=== PATIENT | male | born 1950 | race Caucasian/White ===

== ENCOUNTER 2019-06-23 15:23 | Emergency (ER) | payer MEDICARE, OTHER ==
--- NOTE | 2019-06-23 16:03 | EDM.PDOC ---
ED HPI GENERAL MEDICAL PROBLEM - General Chief Complaint: Cardiovascular Problem Stated Complaint: ABNORMAL PACEMAKER RHYTHM Time Seen by Provider: 06/23/19 15:45 Source of Information: Reports: Patient History Limitations: Reports: No Limitations - History of Present Illness INITIAL COMMENTS - FREE TEXT/NARRATIVE: 69-year-old male who reports that at approximately 6-7 PM last night he had just come in from walking the dog and he felt a thump/shock in his chest. He had felt completely well prior to this. He had no shortness of breath or chest pain. He did not have any weakness or dizziness or loss of consciousness stated with this. He states that he felt fine following this. He reports that he has been eating and drinking normally. He has had no vomiting or diarrhea. He does have a pacer defibrillator in place. Approximately 1-2 PM today, he was driving in his car and felt another thump/shock in his chest. He reports it felt just exactly like somebody shocked him. He was again having no symptoms prior to this and had no symptoms following this. He did not feel that his heart was beating fast or slow. He had no chest pain. He has had no sore throat or cough. He has no pain right now. He rates his pain as a 0/10. There are no other associated signs or symptoms. There are no other modifying factors. Onset: Other (6-7 PM last night and again at 1-2 PM today.) Duration: Other (No pain.) Location: Reports: Other (No pain.) Quality: Reports: Other (Not applicable) Improves with: Reports: None Worsens with: Reports: None Context: Reports: Other (As above) Associated Symptoms: Reports: No Other Symptoms Treatments C[employer] DESSERT: Reports: Other (see below) (Nothing) - Related Data Allergies Allergy/AdvReac Type Severity Reaction Status Date / Time No Known Allergies Allergy Verified 06/23/19 15:51 Home Meds: Home Meds Carvedilol 25 mg PO BID 06/23/19 [History] Diltiazem [Cardizem CD] 120 mg PO DAILY #15 cap.er 06/23/19 [Rx] Fludrocortisone [Fludrocortisone Acetate] 0.1 mg PO DAILY 06/23/19 [History] Rivaroxaban [Xarelto] 20 mg PO DAILY 06/23/19 [History] Past Medical History Cardiovascular History: Reports: Hypertension - Past Surgical History Cardiovascular Surgical History: Reports: AICD (/Pacemaker) Musculoskeletal Surgical History: Reports: Arthroscopic Knee (Right), Other ( See Below) (Right wrist surgery) Social & Family History - Tobacco Use Smoking Status *Q: Unknown Ever Smoked (Nonsmoker) - Alcohol Use Alcohol Use History: No - Living Situation & Occupation Occupation: Retired (Worked at the railroad.) Social History Comment: He is here with a friend. ED ROS GENERAL - Review of Systems Review Of Systems: See Below Constitutional: Reports: No Symptoms HEENT: Reports: No Symptoms Respiratory: Reports: No Symptoms Cardiovascular: Reports: No Symptoms (Other than his AICD apparently shocked him twice in the past 24 hours.) GI/Abdominal: Reports: No Symptoms : Reports: No Symptoms Musculoskeletal: Reports: No Symptoms Skin: Reports: No Symptoms Neurological: Reports: No Symptoms Hematologic/Lymphatic: Reports: No Symptoms Immunologic: Reports: No Symptoms ED EXAM, GENERAL - Physical Exam Exam: See Below Exam Limited By: No Limitations General Appearance: Alert, WD/WN, No Apparent Distress Eye Exam: Bilateral Eye: EOMI, Normal Inspection, PERRL Ears: Normal External Exam Ear Exam: Bilateral Ear: Auricle Normal Nose: Normal Inspection, Normal Mucosa, No Blood Throat/Mouth: Normal Inspection, Normal Oropharynx, Normal Voice, No Airway Compromise Head: Atraumatic, Normocephalic Neck: Normal Inspection, Supple Respiratory/Chest: No Respiratory Distress, Lungs Clear, Normal Breath Sounds, No Accessory Muscle Use, Chest Non-Tender Cardiovascular: Normal Peripheral Pulses, Regular Rate, Rhythm, No Edema, No JVD Peripheral Pulses: 2+: Radial (L), Radial (R), Dorsalis Pedis (L), Dorsalis Pedis (R) GI/Abdominal: Normal Bowel Sounds, Soft, Non-Tender, No Distention Back Exam: Normal Inspection, Full Range of Motion Extremities: Normal Inspection, Normal Range of Motion, Non-Tender, No Pedal Edema, Normal Capillary Refill Neurological: Alert, Oriented, CN II-XII Intact, Normal Cognition, No Motor/ Sensory Deficits Skin Exam: Warm, Dry, Intact, Normal Color, No Rash EKG INTERPRETATION EKG Date: 06/23/19 Time: 15:30 Rhythm: NSR Rate (Beats/Min): 74 [place]: LAD-Left [place] Deviation (Left anterior fascicular block) QRS: Normal ST-T: Other (Diffuse nonspecific ST-T changes) QT: Normal Comparison: NA - No Prior EKG Course - Vital Signs Last Recorded V/S: Last Vital Signs Temp 36.5 C 06/23/19 18:55 Pulse 75 06/23/19 18:55 Resp 17 06/23/19 18:55 BP 110/78 06/23/19 18:55 Pulse Ox 98 06/23/19 18:55 - Orders/Labs/Meds Orders: Active Orders 24 hr Category Date Time Status Chest 1V Frontal [CR] Stat Exams 06/23/19 16:08 Taken Peripheral IV Insertion Adult [OM.PC] Routine Oth 06/23/19 16:08 Ordered EKG 12 Lead [EK] Routine Ther 06/23/19 16:08 Ordered Labs: Laboratory Tests 06/23/19 06/23/19 06/23/19 Range/Units 16:15 16:15 16:15 WBC 5.1 (4.5-12.0) X10-3/uL RBC 5.05 (4.30-5.75) x10(6)uL Hgb 14.9 (13.5-17.8) g/dL Hct 44.5 (30.0-51.3) % MCV 88.1 (80-96) fL MCH 29.5 (27.7-33.6) pg MCHC 33.5 (32.2-35.4) g/dL RDW 11.9 (11.5-15.5) % Plt Count 248 (125-369) X10(3)uL MPV 8.1 (7.4-10.4) fL Neut % (Auto) 57.6 (46-82) % Lymph % (Auto) 28.5 (13-37) % [place] % (Auto) 11.7 (4-12) % Eos % (Auto) 1 (1.0-5.0) % Baso % (Auto) 1 (0-2) % Neut # (Auto) 2.8 (1.6-8.3) # Lymph # (Auto) 1.5 (0.6-5.0) # [place] # (Auto) 0.6 (0.0-1.3) # Eos # (Auto) 0.1 (0.0-0.8) # Baso # (Auto) 0.1 (0.0-0.2) # Sodium 140 (135-145) mmol/L Potassium 3.8 (3.5-5.3) mmol/L Chloride 105 (100-110) mmol/L Carbon Dioxide 25 (21-32) mmol/L BUN 21 H (7-18) mg/dL Creatinine 1.1 (0.70-1.30) mg/dL Est Cr Clr Drug Dosing 68.45 mL/min Estimated GFR (MDRD) > 60 (>60) BUN/Creatinine Ratio 19.1 (9-20) Glucose 103 (80-116) mg/dL Calcium 9.2 (8.6-10.2) mg/dL Magnesium 1.9 (1.8-2.5) mg/dL Total Bilirubin 1.0 (0.1-1.3) mg/dL AST 14 (5-25) IU/L ALT 21 (12-36) U/L Alkaline Phosphatase 74 (56-112) IU/L Troponin I < 0.017 L (<0.017-0.056) ng/mL Total Protein 7.4 (6.0-8.0) g/dL Albumin 3.2 (3.2-4.6) g/dL Globulin 4.2 g/dL Albumin/Globulin Ratio 0.8 Meds: Medications Discontinued Medications Generic Name Dose Route Start Last Admin Trade Name Freq PRN Reason Stop Dose Admin Sodium Chloride 10 ml 06/23/19 16:08 06/23/19 17:05 Saline Flush FLUSH 10 ml ASDIRECTED PRN Administration Keep Vein Open - Radiology Interpretation Free Text/Narrative:: Portable chest x-ray shows no acute disease. - Re-Assessments/Exams Free Text/Narrative Re-Assessment/Exam: 06/23/19 17:48: Patient's blood tests are normal. His chest x-ray was normal. He has remained hemodynamically stable while in the emergency department with no dysrhythmias on the monitor. He has had no more feelings of shock or any noted countershock from his defibrillator/pacemaker. We have contacted the [employer] rep and he is coming to interrogate the patient's defibrillator/ pacemaker. We will continue cardiac and hemodynamic monitoring. 06/23/19 18:15: Care to Dr. Bentley at this point. The [employer] rep is here now. Departure - Departure Time of Disposition: 18:15 Disposition: Home, Self-Care 01 Clinical Impression: AICD discharge Dysrhythmia Qualifiers: Atrial fibrillation type: unspecified Prescriptions: Diltiazem [Cardizem CD] 120 mg PO DAILY #15 cap.er Instructions: Atrial Fibrillation, [id number] Referrals: PCP,Not In Area [Primary Care Provider] - Forms: ED Department Discharge Additional Instructions: [employer] WORKER YOUR MED SENT TO YOUR PHARMACY. ONCE YOU GET TO [place] SET AN APPOINTMENT WITH YOUR PRIMARY PHYSICIAN FOR YOU TO BE CHECKED. - My Orders Last 24 Hours: My Active Orders 06/23/19 16:08 Chest 1V Frontal [CR] Stat Peripheral IV Insertion Adult [OM.PC] Routine EKG 12 Lead [EK] Routine - Assessment/Plan Last 24 Hours: My Active Orders 06/23/19 16:08 Chest 1V Frontal [CR] Stat Peripheral IV Insertion Adult [OM.PC] Routine EKG 12 Lead [EK] Routine
[2019-06-23] MEDS ORDERED: Sodium Chloride 0.9% 10 ML Syringe FLUSH PRN (16:08)
--- NOTE | 2019-06-24 05:35 | ER ---
DATE SEEN: 06/23/2019 REASON FOR VISIT: Malfunctioning pacemaker. HISTORY OF PRESENT ILLNESS: This is a 69-year-old male who has a single-chamber pacemaker that was placed 2 years ago. In the last 1 week, it has shocked him 4 times. He states that it was placed for an irregular heartbeat. He denies chest pain, however; nausea; vomiting; shortness of breath; or dizziness or lightheadedness. MEDICATIONS: Reviewed. ALLERGIES: Reviewed. SOCIAL HISTORY: Nonsmoker. Does not use alcohol. PAST MEDICAL HISTORY: Hypertension. PHYSICAL EXAMINATION: VITAL SIGNS: His blood pressure today is normal, pulse is 83, and temperature 97.6. HEENT: Head is atraumatic. Eyes normal. NECK: Supple. CHEST: Clear. CARDIOVASCULAR: Normal S1 and S2. LABORATORY DATA: He had normal labs including troponin and electrolytes. For the pacemaker, the interrogation revealed some tachycardia, possibly atrial fibrillation according to the [employer] rep that interviewed it. IMPRESSION: Atrial fibrillation with rapid ventricular response. PLAN: The patient is already on anticoagulation. I wrote a prescription for Cardizem 120 mg a day that he will pick up attendant tomorrow. He uses it until he is able to see his physician in [place]. He was discharged in stable condition. /[id number] BRIAN/EMERSON
--- NOTE | 2019-06-25 10:59 | CR ---
INDICATION: Defibrillator going off, short of breath. CHEST: An AP upright portable view of the chest was obtained 06/23/19 - no comparisons. A pacemaker is noted with a single lead tip in the area of the right ventricular apex. The heart did not appear enlarged and appeared normal in shape. The aorta is tortuous with calcification in the arch. Overlying EKG leads are noted. An active infiltrate or effusion was not identified. IMPRESSION: No acute process. MTDD
== END 2019-06-23 18:55 | disposition home or self-care (01) ==
LOC: FB.ED 15:23
DX: T82.198A Other mechanical complication of other cardiac electronic device, initial encounter (principal); I49.9 Cardiac arrhythmia, unspecified; I10 Essential (primary) hypertension; Z79.899 Other long term (current) drug therapy
CPT/HCPCS: 36415; 71045; 80053; 83735; 84484; 85025; 93005; 99284; 99284-25